=== PATIENT | female | born 1985 | race Caucasian/White ===

== ENCOUNTER 2017-11-17 10:15 | Observation (INO) | payer OTHER ==
[~2017-11-17 10:15] MED LIST: FERR1TAB45 PO
[2017-11-17] MEDS ORDERED: PNV1TABL54 PO (10:22)
[2017-11-17] MEDS ORDERED: BETAMETHASONE SOLUSPAN 6 MG/ML 5 ML VIAL IM ONE (10:30)
[2017-11-17 11:07] VITALS: BP 125/69
[2017-11-18] MEDS ORDERED: FOLI0.4T4 PO (13:56)
[2017-11-18] MEDS ORDERED: CALC-1038 PO (13:56)
[2017-11-18] MEDS ORDERED: OMEG-112 BU (13:56)
== END 2017-11-17 11:40 | disposition home or self-care (01) ==
LOC: 4S 10:15
PROVIDERS: ADMIT Specialist; ATTEND Specialist
DX: O30.003 Twin pregnancy, unspecified number of placenta and unspecified number of amniotic sacs, third trimester (principal); Z3A.32 32 weeks gestation of pregnancy
CPT/HCPCS: 59025; 96372; J0702

== ENCOUNTER 2017-11-18 13:25 | Observation (INO) | payer OTHER ==
[~2017-11-18] VITALS: Ht 160 cm; Wt 90.7 kg
[~2017-11-18 13:25] MED LIST changes: +PNV1TABL54 PO
[2017-11-18] MEDS ORDERED: OMEG-112 BU (13:56)
[2017-11-18] MEDS ORDERED: FOLI0.4T4 PO (13:56)
[2017-11-18] MEDS ORDERED: CALC-1038 PO (13:56)
[2017-11-18 13:57] VITALS: BP 120/57
[2017-11-18] MEDS ORDERED: BETAMETHASONE SOLUSPAN 6 MG/ML 5 ML VIAL IM ONE (14:00)
== END 2017-11-18 14:55 | disposition home or self-care (01) ==
LOC: 4S 13:25
PROVIDERS: ADMIT Specialist; ATTEND Specialist
DX: O30.003 Twin pregnancy, unspecified number of placenta and unspecified number of amniotic sacs, third trimester (principal); Z3A.32 32 weeks gestation of pregnancy
CPT/HCPCS: 59025; 96372; J0702